=== PATIENT | female | born 1995 | race Caucasian/White ===

== ENCOUNTER 2017-10-13 22:16 | Emergency (ER) | payer OTHER ==
[2017-10-13 22:22] VITALS: TEMP 99.1
--- NOTE | 2017-10-13 22:35 | EDPHY ---
H & P Stated Complaint: c/o RUQ/R upper back pain x 1 week, intermittent fever x 2 days Time Seen by Provider: 10/13/17 22:24 HPI/ROS: CHIEF COMPLAINT: Right upper quadrant and right shoulder pain x 1 week HISTORY OF PRESENT ILLNESS: 21-year-old immunocompetent female, no history of abdominal surgeries, complaining of 1 week of waxing and waning right upper quadrant/right lower chest/right shoulder pain. Not related to food intake. Unknown reproducing variables. Pain relieved with ibuprofen. Pain is not pleuritic. No trauma. No dyspnea. No cold or flu-like symptoms. No cough. No urinary abnormality. No nausea or vomiting. No flank pain. No trauma. PRIMARY CARE PROVIDER:[facility] REVIEW OF SYSTEMS: A ten point review of systems was performed and is negative with the exception of the items mentioned in the HPI PAST MEDICAL & SURGICAL HISTORY: No pertinent medical or surgical history SOCIAL HISTORY:regular marijuana and tobacco use. No cocaine use. PHYSICAL EXAM (Prior to examination, patient consented to physical exam, hands were washed and my usual and customary physical exam procedures followed) 1) GENERAL: Well-developed, well-nourished, alert and oriented. Appears to be in no acute distress. 2) HEAD: Normocephalic, atraumatic 3) HEENT: Pupils equal, round, reactive to light bilaterally. Sclera anicteric. Nasopharynx, oropharynx, clear, no lesions. Ears bilaterally with normal tympanic membranes. 4) NECK: Full range of motion, no meningeal signs. No bruit 5) LUNGS: Clear auscultation bilaterally, no wheezes, no rhonchi, no retractions. 6) HEART: Regular rate and rhythm, no murmur, no heave, no gallop. 7) ABDOMEN: No guarding, no rebound, no focal tenderness, negative McBurney's, tender to palpation right upper quadrant negative Rovsing's, negative peritoneal sign, 8) MUSCULOSKELETAL: Moving all extremities, no focal areas of tenderness, no obvious trauma. No peripheral edema or discoloration. 9) BACK: No CVA tenderness, no midline vertebral tenderness, no fluctuance, no step-off, no obvious trauma, no visual or palpable abnormality. 10) SKIN: No rash, no petechiae. 11) Psychiatric: Patient is oriented X 3, there is no agitation. DIFFERENTIAL DIAGNOSIS: In no particular order, including but not limited to biliary colic, cholecystitis, peptic ulcer disease, pulmonary embolus, lower lobe pneumonia, pancreatitis, and gastroenteritis. This is a partial list of diagnoses considered. These considerations are based on history, physical exam, past history and reassessment. - Medical/Surgical History Hx Asthma: No Hx Chronic Respiratory Disease: No Hx Diabetes: No Hx Cardiac Disease: No Hx Renal Disease: No Hx Cirrhosis: No Hx Alcoholism: No Hx HIV/AIDS: No Hx Splenectomy or Spleen Trauma: No Other PMH: anxiety - Social History Smoking Status: Current every day smoker Constitutional: Initial Vital Signs Temperature (C) 37.3 C 10/13/17 22:19 Heart Rate 101 H 10/13/17 22:19 Respiratory Rate 16 10/13/17 22:19 Blood Pressure 131/83 H 10/13/17 22:19 O2 Sat (%) 97 10/13/17 22:19 O2 Delivery Mode Room Air Allergies/Adverse Reactions: tree nut Allergy (Verified 10/13/17 22:23) Home Medications: Medication Instructions Recorded Cephalexin [Keflex] 500 mg PO TID 7 Days cap 10/13/17 Lexapro 10/13/17 Medical Decision Making - Diagnostics Imaging Results: Imaging Impressions Chest X-Ray 10/13/17 22:32 IMPRESSION: Normal chest x-ray. Abdomen Ultrasound 10/13/17 22:33 Impression: Normal right upper quadrant ultrasound. Results called and discussed with Nader Sharp PA-C at 10/13/2017 23:15. Images reviewed myself ED Course/Re-evaluation: 11:39 p.m.: Patient was re-evaluated with serial examinations, case discussed with secondary supervising physician Dr. Lamberto Wright in the ER. Moderate pretest suspicion for pulmonary embolus. I think that a negative D-dimer adequately excludes pulmonary embolus. She has a negative gallbladder study. Doubt acute cholecystitis. Doubt acute pancreatitis. Doubt acute appendicitis in the absence of pain in the right lower quadrant. She is noted to have pyuria and bacteriuria which I think are more than likely etiology of her symptoms, more than likely pyelonephritis. At this time I do not think that hospitalization is currently indicated. I have recommended initiation course of antibiotics. Started on Keflex, urine cultured. She is leaving for giving break to [place] tomorrow. Given usual customary pyelonephritis precautions instructions. She feels comfortable being discharged. Doubt urosepsis. - Data Points Laboratory Results: Laboratory Results 10/13/17 22:40 10/13/17 22:40 10/13/17 10/13/17 10/13/17 22:44 22:40 22:40 WBC RBC Hgb Hct MCV MCH MCHC RDW Plt Count MPV Neut % (Auto) Lymph % (Auto) [place] % (Auto) Eos % (Auto) Baso % (Auto) Nucleat RBC Rel Count Absolute Neuts (auto) Absolute Lymphs (auto) Absolute Monos (auto) Absolute Eos (auto) Absolute Basos (auto) Absolute Nucleated RBC Immature Gran % Immature Gran # D-Dimer Sodium 140 mEq/L mEq/L (134-144) Potassium 3.8 mEq/L mEq/L (3.5-5.2) Chloride 101 mEq/L mEq/L (97-110) Carbon Dioxide 23 mEq/l mEq/l (22-31) Anion Gap 16 mEq/L mEq/L (8-16) BUN 8 mg/dL mg/dL (7-23) Creatinine 0.7 mg/dL mg/dL (0.6-1.0) Estimated GFR > 60 Glucose 101 mg/dL H mg/dL (70-100) Calcium 9.7 mg/dL mg/dL (8.5-10.4) Total Bilirubin 0.4 mg/dL mg/dL (0.1-1.4) Conjugated Bilirubin 0.2 mg/dL mg/dL (0.0-0.5) Unconjugated Bilirubin 0.2 mg/dL mg/dL (0.0-1.1) AST 27 IU/L IU/L (14-46) ALT 31 IU/L IU/L (9-52) Alkaline Phosphatase 70 IU/L IU/L (38-126) Total Protein 8.1 g/dL g/dL (6.3-8.2) Albumin 4.9 g/dL g/dL (3.5-5.0) Lipase 43 IU/L IU/L (23-300) Beta HCG, Qual NEGATIVE Urine Color YELLOW Urine Appearance HAZY Urine pH 5.0 (5.0-7.5) Ur Specific Inlet 1.019 (1.002-1.030) Urine Protein NEGATIVE (NEGATIVE) Urine Ketones NEGATIVE (NEGATIVE) Urine Blood NEGATIVE (NEGATIVE) Urine Nitrate NEGATIVE (NEGATIVE) Urine Bilirubin NEGATIVE (NEGATIVE) Urine Urobilinogen 2.0 EU H EU (0.2-1.0) Ur Leukocyte Esterase TRACE H (NEGATIVE) Urine RBC NONE SEEN /hpf /hpf (0-3) Urine WBC 3-5 /hpf H /hpf (0-3) Ur Epithelial Cells 1+ /lpf /lpf (NONE-1+) Urine Bacteria TRACE /hpf H /hpf (NONE SEEN) Urine Mucus 4+ /lpf H /lpf (NONE-1+) Urine Glucose NEGATIVE (NEGATIVE) 10/13/17 10/13/17 22:40 22:40 WBC 9.49 10^3/uL 10^3/uL (3.80-9.50) RBC 4.88 10^6/uL 10^6/uL (4.18-5.33) Hgb 14.8 g/dL g/dL (12.6-16.3) Hct 42.7 % % (38.0-47.0) MCV 87.5 fL fL (81.5-99.8) MCH 30.3 pg pg (27.9-34.1) MCHC 34.7 g/dL g/dL (32.4-36.7) RDW 13.7 % % (11.5-15.2) Plt Count 253 10^3/uL 10^3/uL (150-400) MPV 8.7 fL fL (8.7-11.7) Neut % (Auto) 74.8 % H % (39.3-74.2) Lymph % (Auto) 15.5 % % (15.0-45.0) [place] % (Auto) 8.5 % % (4.5-13.0) Eos % (Auto) 0.5 % L % (0.6-7.6) Baso % (Auto) 0.4 % % (0.3-1.7) Nucleat RBC Rel Count 0.0 % % (0.0-0.2) Absolute Neuts (auto) 7.09 10^3/uL H 10^3/uL (1.70-6.50) Absolute Lymphs (auto) 1.47 10^3/uL 10^3/uL (1.00-3.00) Absolute Monos (auto) 0.81 10^3/uL H 10^3/uL (0.30-0.80) Absolute Eos (auto) 0.05 10^3/uL 10^3/uL (0.03-0.40) Absolute Basos (auto) 0.04 10^3/uL 10^3/uL (0.02-0.10) Absolute Nucleated RBC 0.00 10^3/uL 10^3/uL (0-0.01) Immature Gran % 0.3 % % (0.0-1.1) Immature Gran # 0.03 10^3/uL 10^3/uL (0.00-0.10) D-Dimer 0.45 ug/mLFEU ug/mLFEU (0.00-0.50) Sodium Potassium Chloride Carbon Dioxide Anion Gap BUN Creatinine Estimated GFR Glucose Calcium Total Bilirubin Conjugated Bilirubin Unconjugated Bilirubin AST ALT Alkaline Phosphatase Total Protein Albumin Lipase Beta HCG, Qual Urine Color Urine Appearance Urine pH Ur Specific Inlet Urine Protein Urine Ketones Urine Blood Urine Nitrate Urine Bilirubin Urine Urobilinogen Ur Leukocyte Esterase Urine RBC Urine WBC Ur Epithelial Cells Urine Bacteria Urine Mucus Urine Glucose Departure - Departure Disposition: Home, Routine, Self-Care Clinical Impression: Acute pyelonephritis Condition: Good Instructions: Cephalexin (By mouth), Hydrocodone/Acetaminophen (By mouth), Kidney Infection (ED), Flank Pain (ED) Additional Instructions: Return to the ER immediately if you experience fevers/chills, flu like symptoms , inability to tolerate oral intake, nausea or vomiting, or any other symptoms that concern you. Referrals: LYNN HARRISON [Other] - 1-2 days without fail Prescriptions: Cephalexin [Keflex] 500 mg PO TID 7 Days cap
[2017-10-13 22:57] LABS: % IMMATURE GRANULYOCYTES 0.3 % (0.0-1.1); ABSOLUTE IMMATURE GRANULOCYTES 0.03 10^3/uL (0.00-0.10); ADD DIFF? NO; ADD MORPH? NO; ADD SCAN? NO; ATYPICAL LYMPHOCYTE FLAG 60 (0-99); FRAGMENT RBC FLAG 0 (0-99); HEMATOCRIT 42.7 % (38.0-47.0); HEMOGLOBIN 14.8 g/dL (12.6-16.3); LEFT SHIFT FLG 0 (0-99); LIPEMIA HEMOLYSIS FLAG 90 (0-99); MEAN CELL HEMOGLOBIN 30.3 pg (27.9-34.1); MEAN CELL HEMOGLOBIN CONCENTR. 34.7 g/dL (32.4-36.7); MEAN CELL VOLUME 87.5 fL (81.5-99.8); MEAN PLATELET VOLUME 8.7 fL (8.7-11.7); PLATELET CLUMPS FLAG 10 (0-99); PLATELET COUNT 253 10^3/uL (150-400); RED BLOOD CELL COUNT 4.88 10^6/uL (4.18-5.33); RED CELL DISTRIBUTION WIDTH 13.7 % (11.5-15.2)
[2017-10-13 23:08] LABS: BACTERIA TRACE /hpf (NONE SEEN); COLOR YELLOW; LEUKOCYTE ESTERASE,URINE TRACE (NEGATIVE); MUCUS 4+ /lpf (NONE-1+); NITRITE,URINE NEGATIVE (NEGATIVE); RBC,URINE NONE SEEN /hpf (0-3)
[2017-10-13 23:09] LABS: ALANINE AMINOTRANSFERASE 31 IU/L (9-52); ALBUMIN 4.9 g/dL (3.5-5.0); ALKALINE PHOSPHATASE 70 IU/L (38-126); ANION GAP 16 mEq/L (8-16); ASPARTATE AMINOTRANSFERASE 27 IU/L (14-46); BILIRUBIN,TOTAL 0.4 mg/dL (0.1-1.4); BILIRUBIN-CONJUGATED 0.2 mg/dL (0.0-0.5); BILIRUBIN-UNCONJUGATED 0.2 mg/dL (0.0-1.1); CALCIUM 9.7 mg/dL (8.5-10.4); CARBON DIOXIDE 23 mEq/l (22-31); CHLORIDE 101 mEq/L (97-110); CREATININE 0.7 mg/dL (0.6-1.0); GLOMERULAR FILTRATION RATE > 60; GLUCOSE 101 mg/dL (70-100); POTASSIUM 3.8 mEq/L (3.5-5.2); SODIUM 140 mEq/L (134-144); TOTAL PROTEIN 8.1 g/dL (6.3-8.2)
[2017-10-13] MEDS ORDERED: CEPHALEXIN 500 MG CAP PO ONE (23:37)
[2017-10-13] MEDS ORDERED: HYDROCOD/APAP 5/325 PREPACK#6 BTL TAKEHOME ONE (23:41)
[2017-10-13] MEDS ORDERED: CEPHALEXIN 500MG PREPACK#4 BTL TAKEHOME ONE ×2 (23:47→23:48)
[2017-10-14 00:02] VITALS: BP 113/70; PULSE 70; RESP 15; O2SAT 98
== END 2017-10-14 | disposition home or self-care (01) ==
DX: N10 Acute pyelonephritis (principal); B96.89 Other specified bacterial agents as the cause of diseases classified elsewhere; F17.200 Nicotine dependence, unspecified, uncomplicated